=== PATIENT | male | born 1990 | race African-American/Black ===

== ENCOUNTER 2022-01-21 13:35 | Emergency (ER) | payer MEDICAID ==
[~2022-01-21] VITALS: Ht 177.8 cm; Wt 59.0 kg
[2022-01-21 13:46] VITALS: BP 126/52
[2022-01-21] MEDS ORDERED: DOXYCYCLINE HYCLATE 100MG CAPSULE PO ONE (14:00)
[2022-01-21] MEDS ORDERED: CEFTRIAXONE SODIUM 500 MG/VIAL IM ONE (14:00)
[2022-01-21] MEDS ORDERED: DOXY100T2 MT (15:23)
[2022-01-21] MEDS ORDERED: DOXYCYCLINE HYCLATE 100MG CAPSULE PO NR (15:30)
[2022-01-21] MEDS ORDERED: CEFTRIAXONE SODIUM 500 MG/VIAL IM NR (15:30)
[2022-01-23 04:07] LABS: NEISSERIA GONORRHOEAE NAA Negative (Negative)
== END 2022-01-21 15:47 | disposition home or self-care (01) ==
LOC: ER 13:35
DX: R36.9 Urethral discharge, unspecified (principal)
CPT/HCPCS: 87491; 87591; 96372; 99283; J0696

== ENCOUNTER 2022-04-17 15:36 | Emergency (ER) | payer MEDICAID ==
[~2022-04-17] VITALS: Ht 175.3 cm; Wt 73.0 kg
[~2022-04-17 15:36] MED LIST: DOXY100T2 MT
[2022-04-17 16:27] VITALS: BP 121/83
[2022-04-17] MEDS ORDERED: CEFTRIAXONE SODIUM 500 MG/VIAL IM ONE (19:30)
[2022-04-17] MEDS ORDERED: DOXYCYCLINE HYCLATE 100MG CAPSULE PO ONE (19:30)
[2022-04-17 19:57] LABS: CLARITY URINE CLEAR (CLEAR); COLOR URINE YELLOW (YELLOW); KETONES URINE NEGATIVE (NEGATIVE); LEUKOCYTE ESTERASE URINE NEGATIVE (NEGATIVE); NITRITE URINE NEGATIVE (NEGATIVE); OCCULT BLOOD URINE NEGATIVE (NEGATIVE); PH URINE 5.5 (4.5-8.0); PROTEIN URINE NEGATIVE (NEGATIVE); SPECIFIC GRAVITY URINE 1.019 (1.005-1.030); UROBILINOGEN URINE 0.2 E.U./dL (0.2-1.0)
[2022-04-17] MEDS ORDERED: DOXY100T2 MT (20:04)
[2022-04-20 06:08] LABS: NEISSERIA GONORRHOEAE NAA Negative (Negative)
== END 2022-04-17 20:11 | disposition home or self-care (01) ==
LOC: ER 15:36
DX: R36.9 Urethral discharge, unspecified (principal)
CPT/HCPCS: 81003; 87491; 87591; 96372; 99283; J0696

== ENCOUNTER 2022-06-06 15:54 | Emergency (ER) | payer MEDICAID ==
[~2022-06-06] VITALS: Ht 175.3 cm; Wt 75.0 kg
[2022-06-06 16:19] VITALS: BP 126/72
[2022-06-06] MEDS ORDERED: CEFTRIAXONE SODIUM 500 MG/VIAL IM ONE (17:00)
[2022-06-06] MEDS ORDERED: MUPI22OI2 TP (17:01)
[2022-06-06] MEDS ORDERED: DOXY100T2 MT (17:01)
[2022-06-06] MEDS ORDERED: CEFTRIAXONE SODIUM 1 G/VIAL IM ONE (18:00)
[2022-06-09 04:07] LABS: NEISSERIA GONORRHOEAE NAA Negative (Negative)
== END 2022-06-06 19:43 | disposition home or self-care (01) ==
LOC: ER 16:03
DX: N48.1 Balanitis (principal); Z20.2 Contact with and (suspected) exposure to infections with a predominantly sexual mode of transmission
CPT/HCPCS: 87491; 87591; 96372; 99283; J0696

== ENCOUNTER 2022-08-26 15:10 | Emergency (ER) | payer MEDICAID ==
[~2022-08-26] VITALS: Ht 172.7 cm; Wt 66.0 kg
[~2022-08-26 15:10] MED LIST changes: +MUPI22OI2 TP
[2022-08-26] MEDS ORDERED: CEFTRIAXONE SODIUM 500 MG/VIAL IM ONE (17:30)
[2022-08-26] MEDS ORDERED: CEFTRIAXONE SODIUM 500 MG/VIAL IM NR (17:30)
[2022-08-26 19:39] LABS: CLARITY URINE CLOUDY (CLEAR); COLOR URINE DARK YELLOW (YELLOW); KETONES URINE TRACE (NEGATIVE); LEUKOCYTE ESTERASE URINE NEGATIVE (NEGATIVE); NITRITE URINE NEGATIVE (NEGATIVE); OCCULT BLOOD URINE NEGATIVE (NEGATIVE); PROTEIN URINE 1+ (NEGATIVE); SPECIFIC GRAVITY URINE 1.027 (1.005-1.030)
[2022-08-26] MEDS ORDERED: DOXY100C5 MT (21:35)
[2022-08-26 21:45] VITALS: BP 112/64
[2022-08-31 04:07] LABS: NEISSERIA GONORRHOEAE NAA Negative (Negative)
== END 2022-08-26 21:45 | disposition home or self-care (01) ==
LOC: ER 15:10
DX: N34.2 Other urethritis (principal); Z79.899 Other long term (current) drug therapy
CPT/HCPCS: 81003; 87491; 87591; 96372; 99283; J0696

== ENCOUNTER 2023-04-24 08:56 | Emergency (ER) | payer MEDICAID ==
[~2023-04-24] VITALS: Ht 175.3 cm; Wt 70.0 kg
[~2023-04-24 08:56] MED LIST changes: +DOXY100C5 MT
[2023-04-24 08:58] VITALS: BP 123/60; RESP 20; TEMP 98.5; O2SAT 68
[2023-04-24 08:59] VITALS: PULSE 85
[2023-04-24] MEDS ORDERED: LIDOCAINE HCL 1% 20ML VIAL (Pyxis) INJ INFIL ONE (09:15)
[2023-04-24] MEDS ORDERED: CEFTRIAXONE SODIUM 500 MG/VIAL IM ONE (09:15)
[2023-04-24 09:30] LABS: CLARITY URINE CLEAR (CLEAR); COLOR URINE YELLOW (YELLOW); KETONES URINE NEGATIVE (NEGATIVE); LEUKOCYTE ESTERASE URINE NEGATIVE (NEGATIVE); NITRITE URINE NEGATIVE (NEGATIVE); OCCULT BLOOD URINE NEGATIVE (NEGATIVE); PH URINE 5.5 (4.5-8.0); PROTEIN URINE NEGATIVE (NEGATIVE); SPECIFIC GRAVITY URINE 1.022 (1.005-1.030)
[2023-04-24] MEDS ORDERED: DOXY100C5 MT (09:40)
== END 2023-04-24 09:57 | disposition home or self-care (01) ==
LOC: ER 09:05
DX: A64 Unspecified sexually transmitted disease (principal); R30.0 Dysuria; Z79.899 Other long term (current) drug therapy
CPT/HCPCS: 99283; 81003; 96372; J0696; J3490

== ENCOUNTER 2023-09-13 09:55 | Emergency (ER) | payer MEDICAID ==
[~2023-09-13] VITALS: Ht 172.7 cm; Wt 77.0 kg
[2023-09-13 10:16] VITALS: O2SAT 99
[2023-09-13] MEDS ORDERED: DOXY100T2 MT (10:57)
[2023-09-13] MEDS ORDERED: CEFTRIAXONE SODIUM 1 G/VIAL IM ONE (11:00)
[2023-09-13 11:26] LABS: CLARITY URINE CLEAR (CLEAR); COLOR URINE YELLOW (YELLOW); GLUCOSE URINE NEGATIVE (NEGATIVE); KETONES URINE NEGATIVE (NEGATIVE); LEUKOCYTE ESTERASE URINE TRACE (NEGATIVE); NITRITE URINE NEGATIVE (NEGATIVE); OCCULT BLOOD URINE NEGATIVE (NEGATIVE); PROTEIN URINE NEGATIVE (NEGATIVE); SPECIFIC GRAVITY URINE 1.026 (1.005-1.030)
[2023-09-13 11:59] LABS: SQUAMOUS EPITHELIAL CELL URINE 1+ /lpf (RARE/1+)
[2023-09-13 12:04] LABS: MUCUS URINE 3+ /lpf (NONE/TRACE)
[2023-09-13 12:05] LABS: WBC URINE 15-25 /hpf (0-2)
[2023-09-13 12:06] LABS: BACTERIA URINE TRACE
[2023-09-13] MEDS ORDERED: LIDOCAINE HCL 1% 20ML VIAL (Pyxis) INJ INFIL ONE (12:15)
[2023-09-13 12:30] VITALS: BP 118/69; PULSE 99; RESP 15; TEMP 98.5
[2023-09-13] MEDS ORDERED: CEFTRIAXONE SODIUM 1 G/VIAL IM SCH (12:30)
[2023-09-13] MEDS ORDERED: LIDOCAINE HCL 1% 20ML VIAL (Pyxis) INJ INFIL SCH (12:30)
[2023-09-16 04:07] LABS: CHLAMYDIA TRACHOMATIS NAA Negative (Negative); NEISSERIA GONORRHOEAE NAA Negative (Negative)
== END 2023-09-13 12:47 | disposition home or self-care (01) ==
LOC: ER 09:55
DX: Z11.3 Encounter for screening for infections with a predominantly sexual mode of transmission (principal)
CPT/HCPCS: 99283; 87491; 87591; 81003; 87086; 96372; J0696; J3490

== ENCOUNTER 2024-03-10 15:39 | Emergency (ER) | payer MEDICAID ==
[~2024-03-10] VITALS: Ht 172.7 cm; Wt 71.0 kg
[2024-03-10 15:47] VITALS: BP 121/76; RESP 18; TEMP 98.9; O2SAT 100
[2024-03-10 15:48] VITALS: PULSE 88
[2024-03-10] MEDS: CEFTRIAXONE SODIUM 500MG VIAL IM ONE (16:15)
[2024-03-10 16:30] LABS: CLARITY URINE CLEAR (CLEAR); COLOR URINE YELLOW (YELLOW); GLUCOSE URINE NEGATIVE (NEGATIVE); KETONES URINE TRACE (NEGATIVE); LEUKOCYTE ESTERASE URINE NEGATIVE (NEGATIVE); NITRITE URINE NEGATIVE (NEGATIVE); OCCULT BLOOD URINE NEGATIVE (NEGATIVE); PH URINE 5.5 (4.5-8.0); PROTEIN URINE NEGATIVE (NEGATIVE); SPECIFIC GRAVITY URINE 1.029 (1.005-1.030)
[2024-03-10] MEDS ORDERED: DOXY100C5 MT (17:01)
[2024-03-13 04:08] LABS: CHLAMYDIA TRACHOMATIS NAA Negative (Negative); NEISSERIA GONORRHOEAE NAA Negative (Negative)
== END 2024-03-10 17:13 | disposition home or self-care (01) ==
LOC: ER 15:39
DX: R30.0 Dysuria (principal); Z11.3 Encounter for screening for infections with a predominantly sexual mode of transmission
CPT/HCPCS: 87491; 87591; 81003; 96372; 99283; J0696; Z7610

== ENCOUNTER 2024-05-10 17:22 | Emergency (ER) | payer MEDICAID ==
[~2024-05-10] VITALS: Ht 172.7 cm; Wt 71.0 kg
[2024-05-10 17:39] VITALS: BP 133/91; PULSE 67; RESP 12; TEMP 98.3; O2SAT 99
[2024-05-10] MEDS ORDERED: DOXY150T9 MT (18:10)
[2024-05-10 18:21] LABS: CLARITY URINE CLEAR (CLEAR); COLOR URINE YELLOW (YELLOW); GLUCOSE URINE NEGATIVE (NEGATIVE); KETONES URINE TRACE (NEGATIVE); LEUKOCYTE ESTERASE URINE NEGATIVE (NEGATIVE); NITRITE URINE NEGATIVE (NEGATIVE); OCCULT BLOOD URINE NEGATIVE (NEGATIVE); PROTEIN URINE NEGATIVE (NEGATIVE); SPECIFIC GRAVITY URINE 1.023 (1.005-1.030)
[2024-05-10] MEDS: CEFTRIAXONE SODIUM 500MG VIAL IM ONE (18:22)
[2024-05-13 19:06] LABS: CHLAMYDIA TRACHOMATIS NAA Negative (Negative); NEISSERIA GONORRHOEAE NAA Negative (Negative)
== END 2024-05-10 18:23 | disposition home or self-care (01) ==
LOC: ER 17:22
DX: R30.0 Dysuria (principal); Z11.3 Encounter for screening for infections with a predominantly sexual mode of transmission; Z79.899 Other long term (current) drug therapy
CPT/HCPCS: 87491; 87591; 81003; 96372; 99283; J0696; Z7610